=== PATIENT | female | born 1985 | race Caucasian/White ===

== ENCOUNTER 2017-02-12 13:09 | Emergency (ER) | payer BC ==
[~2017-02-12] VITALS: Ht 154.9 cm; Wt 81.6 kg
[2017-02-12 13:52] LABS: APPEARANCE,URINE CLOUDY (CLEAR); UA COLOR ORANGE (YELLOW)
[2017-02-12 13:54] LABS: WBC,URINE TNTC WBC/HPF (0-2)
[2017-02-12] MEDS ORDERED: TORADOL ONE (14:22)
[2017-02-12] MEDS ORDERED: LIDOCAINE 1% VIAL ONE (14:22)
[2017-02-12] MEDS ORDERED: ROCEPHIN ONE (14:23)
[2017-02-12] MEDS ORDERED: TORADOL IM STA (14:24)
[2017-02-12] MEDS ORDERED: ROCEPHIN IM IM STA (14:24)
--- NOTE | 2017-02-12 14:28 | ER.PDOC ---
General Chief Complaint: Female Urogenital Problems Stated Complaint: UTI Time seen by MD: 14:25 Source: patient Exam Limitations: no limitations History of Present Illness Initial Comments Possible UTI, pain with urination for past few days. Has a history of recurrent UTI. Severity/Quality: moderate Associated Symptoms: dysuria Prior symptoms/Treatment: Similar symptoms previous Allergies: Coded Allergies: No Known Allergies (Unverified , 02/12/17) Past Medical History Medical History: no pertinent history Surgical History: hysterectomy LMP (females 10-50): hysterectomy Social History Smoking: less than 1 pack/day Alcohol Use: occassionally Drug Use: none Review of Systems Constitutional: no symptoms reported Respiratory: no symptoms reported Cardiovascular: no symptoms reported Genitourinary: see HPI All Other Systems: Reviewed and Negative Physical Exam General Appearance: No Apparent Distress, WD/WN Neck: nml inspection, non-tender Cardiovascular/Respiratory: Regular Rate, Rhythm, No M/R/G, Normal Peripheral Pulses, No JVD, Normal Breath Sounds, No Respiratory Distress Abdomen: Normal Bowel Sounds, Non Tender, Soft, No Organomegaly, No Pulsatile Mass Back: nml inspection Extremities: Normal Range of Motion, Non-Tender, Normal Inspection, No Pedal Edema, No Calf Tenderness, Normal Capillary Refill 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 II-XII NML as Tested, No Motor/Sensory Deficits, Alert, Normal Mood/Affect, Oriented x 3 Skin: Normal Color, Warm/Dry Results/Orders Results/Orders Laboratory Tests Test 02/12/17 13:36 Urine Collection Type VOID Urine Color ORANGE (YELLOW) Urine Appearance CLOUDY (CLEAR) Urine Bilirubin MG/DL (NEGATIVE) Urine Ketones (NEGATIVE) Urine Specific [place] (1.005-1.035) Urine pH (5.0-6.0) Urine Protein (NEGATIVE) Urine Urobilinogen (NEGATIVE) Urine Nitrate (NEGATIVE) Urine Leukocyte Esterase (NEGATIVE) Urine Blood (NEGATIVE) Urine RBC 2-5 RBC/HPF (NONE SEEN) Urine WBC TNTC WBC/HPF (0-2) Urine Squamous Epithelial Cells FEW #/HPF (FEW) Urine Renal Epithelial Cells FEW #/HPF (NONE SEEN) Urine Bacteria MODERATE (NONE SEEN) Urine Glucose (NEGATIVE) Urine Comment Departure Time of Disposition: 14:26 Disposition: 01 HOME, SELF-CARE Impression: Primary Impression: UTI (urinary tract infection) Condition: Stable Referrals: PCP,UNKNOWN (PCP) PRIMARY CARE PROVIDER Additional Instructions: Bactrim DS Ibuprofen F/U with your PCP in 2-3 days Problem Qualifiers Primary Impression: UTI (urinary tract infection) Urinary tract infection type: site unspecified Hematuria presence: with hematuria Qualified Codes: N39.0 - Urinary tract infection, site not specified ; R31.9 - Hematuria, unspecified DANA MCCARTHY MD Feb 12, 2017 14:28
== END 2017-02-12 14:47 | disposition home or self-care (01) ==
LOC: ER 13:09
DX: N39.0 Urinary tract infection, site not specified (principal); R31.9 Hematuria, unspecified; F17.200 Nicotine dependence, unspecified, uncomplicated; Z87.440 Personal history of urinary (tract) infections
CPT/HCPCS: 81000; 87086; 96372 ×2; 99284; J0696; J1885; J2001